=== PATIENT | female | born 1995 | race Two or more races ===

== ENCOUNTER 2019-09-15 13:14 | Emergency (ER) | payer MEDICAID, OTHER ==
[~2019-09-15] VITALS: Ht 152.4 cm; Wt 45.4 kg
[2019-09-15 13:28] VITALS: BP 107/67
== END 2019-09-15 15:30 | disposition home or self-care (01) ==
LOC: ER 13:17
DX: S20.211A Contusion of right front wall of thorax, initial encounter (principal); W18.2XXA Fall in (into) shower or empty bathtub, initial encounter; Y93.E1 Activity, personal bathing and showering; Y92.091 Bathroom in other non-institutional residence as the place of occurrence of the external cause; Y99.8 Other external cause status
CPT/HCPCS: 71101